=== PATIENT | male | born 1990 | race Caucasian/White ===

== ENCOUNTER 2021-08-23 20:00 | Emergency (ER) | payer OTHER ==
[~2021-08-23] VITALS: Ht 185.4 cm; Wt 104.5 kg
[2021-08-23] MEDS ORDERED: acetaminophen 325mg tablet PO ONE ×2 (20:45)
[2021-08-23] MEDS ORDERED: normal saline 1000ml 1,000 ML IV ONE (20:45)
[2021-08-23 22:05] LABS: C-REACTIVE PROTEIN 0.64 MG/DL (0.0-0.5); LACTATE DEHYDROGENASE 249 U/L (85-227)
[2021-08-23 22:09] LABS: LYMPHOCYTES # (AUTO) 0.7 X10'3 (1.1-4.8); MEAN CORPUSCULAR HEMOGLOBIN 32.4 PG (27.0-31.0); MONOCYTES # (AUTO) 0.3 X10'3 (0-0.9); NEUTROPHILS # (AUTO) 1.2 X10'3 (1.8-7.7); RED BLOOD COUNT 4.94 X10'6 (4.70-6.10)
[2021-08-23 22:11] LABS: BASOPHILS % (AUTO) 0.4 % (0-1); EOSINOPHILS % (AUTO) 0.2 % (0-6); HEMATOCRIT 45.4 % (42.0-52.0); LYMPHOCYTES % (AUTO) 29.7 % (21-51); MEAN CORPUSCULAR HGB CONC 35.3 g/dL (33.0-36.5); MEAN CORPUSCULAR VOLUME 91.9 FL (78-98); MEAN PLATELET VOLUME 9.1 FL (7.4-10.4); MONOCYTES % (AUTO) 13.9 % (2-12); NEUTROPHILS % (AUTO) 55.8 % (42-75); PLATELET COUNT 140 X10'3 (140-440); WHITE BLOOD COUNT 2.2 X10'3 (4.5-11.0)
[2021-08-23 22:15] VITALS: BP 130/65
[2021-08-23 22:18] LABS: ALANINE AMINOTRANSFERASE 37 U/L (12-78); ALBUMIN 3.6 G/DL (3.4-5.0); ALKALINE PHOSPHATASE 109 IU/L (46-116); ANION GAP 6 (8-16); ASPARTATE AMINO TRANSFERASE 27 U/L (10-37); BILIRUBIN,TOTAL 0.4 MG/DL (0.1-1.0); BLOOD UREA NITROGEN 12 MG/DL (7-18); BUN/CREATININE RATIO 10.4 (5.4-32.0); CALCIUM 7.5 MG/DL (8.5-10.1); CHLORIDE 99 MMOL/L (99-107); CREATININE 1.15 MG/DL (0.60-1.10); GLUCOSE 96 MG/DL (70-104); POTASSIUM 3.5 MMOL/L (3.5-5.1); SODIUM 129 MMOL/L (135-145); TOTAL CARBON DIOXIDE 24.2 MMOL/L (24-32); TOTAL PROTEIN 7.1 G/DL (6.4-8.2); eGFR 75 ML/MIN
[2021-08-23] MEDS ORDERED: BENZ-16 PO (22:29)
[2021-08-23] MEDS ORDERED: ALBU8HFA PO (22:29)
[2021-08-23 22:32] LABS: TOTAL CELLS COUNTED 100
[2021-08-23 22:35] LABS: SMUDGE CELLS 1+
[2021-08-23 22:36] LABS: PLATELET ESTIMATE NORMAL
== END 2021-08-23 22:59 | disposition home or self-care (01) ==
LOC: ER 20:00
DX: U07.1 COVID-19 (principal); E86.0 Dehydration; Z79.899 Other long term (current) drug therapy
CPT/HCPCS: 36415; 71045; 80053; 83615; 85007; 85025; 86140; 96360; 96361; 99284; J7030

== ENCOUNTER 2022-02-17 00:59 | Emergency (ER) | payer SELFPAY ==
[~2022-02-17] VITALS: Ht 182.9 cm; Wt 86.4 kg
[2022-02-17 02:27] VITALS: BP 120/84
== END 2022-02-17 02:30 | disposition home or self-care (01) ==
LOC: ER 01:00
DX: Z02.89 Encounter for other administrative examinations (principal); R20.8 Other disturbances of skin sensation; R10.84 Generalized abdominal pain; R14.0 Abdominal distension (gaseous)
CPT/HCPCS: 99281